=== PATIENT | female | born 1970 | race Caucasian/White ===

== ENCOUNTER 2018-05-11 13:39 | Emergency (ER) | payer BC ==
[~2018-05-11] VITALS: Ht 165.1 cm; Wt 58.6 kg
[~2018-05-11 13:39] MED LIST: BENADRYL25 MG PO; GAS-X80 MG PO; IBUPROFEN600 MG PO; KLONOPIN0.5 MG; KLONOPIN0.5 MG PO; PERCOCET 5-3251 TAB PO
[2018-05-11 14:02] VITALS: Ht 165.1 cm; Wt 58.6 kg
[2018-05-11] MEDS ORDERED: CYCLOBENZAPRINE10 MG PO (14:06)
[2018-05-11 14:49] LABS: APPEARANCE CLEAR (CLEAR); BACTERIA MODERATE /hpf (NONE SEEN); BILIRUBIN NEGATIVE (NEGATIVE); COLOR YELLOW (YELLOW); EPITHELIAL CELLS 0-5 /hpf (0-5); GLUCOSE NEGATIVE (NEGATIVE); KETONE LARGE mg/dL (NEGATIVE); MUCUS >1+ /lpf (NONE SEEN); NITRITE NEGATIVE (NEGATIVE); PROTEIN NEGATIVE (NEGATIVE); RED CELLS - URINE RARE /hpf (0-5); UROBILINOGEN NORMAL (NORMAL); WHITE CELLS - URINE 0-5 /hpf (0-5)
[2018-05-11 15:00] LABS: BASOPHILS 0.2 % (0-2); EOSINOPHILS 0.3 % (0-7); HEMATOCRIT 36.6 % (36.0-48.0); HEMOGLOBIN 12.4 g/dL (12-16); IMMATURE GRANULOCYTES 0.2 % (0-5); LYMPHOCYTES 11.2 % (15-50); MCH 29.2 pg (26.0-34.0); MCHC 33.9 g/dL (31.0-37.0); MCV 86.3 fL (80.0-100.0); MEAN PLATELET VOLUME 8.9 fL (7.4-10.4); MONOCYTES 3.2 % (2-11); NEUTROPHILS 84.9 % (40-80); PLATELET COUNT 221 10x3/uL (130-400); RBC 4.24 10x6/uL (4.00-5.40); RDW 11.8 % (11.5-14.5); WBC 6.5 10x3/uL (4.8-10.8)
[2018-05-11 15:59] LABS: ALBUMIN 3.2 g/dL (3.4-5.0); ALKALINE PHOSPHATASE 105 U/L (46-116); ALT (SGPT) 25 U/L (10-68); BILIRUBIN - TOTAL 1.01 mg/dL (0.2-1.3); CALC OSMOLALITY 284 mosm/kg (275-300); CALCIUM 8.1 mg/dL (8.5-10.1); CARBON DIOXIDE 28.3 mmol/L (21.0-32.0); CHLORIDE - SERUM 107 mmol/L (98-107); CREATININE - SERUM 0.7 mg/dL (0.6-1.3); GLUCOSE 110 mg/dL (74-106); POTASSIUM - SERUM 3.4 mmol/L (3.5-5.1); PROTEIN - SERUM 6.6 g/dL (6.4-8.2); SODIUM 143 mmol/L (136-145); UREA NITROGEN 11 mg/dL (7-18); eGFR NON AFRICAN AMERICAN > 90 mL/min (90-120)
[2018-05-11 16:25] LABS: AMYLASE - SERUM 46 U/L (25-115); LIPASE 78 U/L (73-393)
[2018-05-11] MEDS ORDERED: ZOFRAN ODT4 MG/UDTAB PO (17:51)
[2018-05-11 18:29] VITALS: BP 121/79
== END 2018-05-11 18:29 | disposition home or self-care (01) ==
LOC: D.ER 13:39
PROVIDERS: Family Medicine
DX: R11.2 Nausea with vomiting, unspecified (principal); T50.905A Adverse effect of unspecified drugs, medicaments and biological substances, initial encounter; Y92.019 Unspecified place in single-family (private) house as the place of occurrence of the external cause; R51 Headache; Z85.828 Personal history of other malignant neoplasm of skin

== ENCOUNTER → 2018-06-27 21:01 | Outpatient (CLI) | payer BC ==
[2018-05-11 14:02] VITALS: BMI 21.5
[~2018-06-27 21:01] MED LIST changes: +CYCLOBENZAPRINE10 MG PO; +ZOFRAN ODT4 MG/UDTAB PO
== END | disposition home or self-care (01) ==
LOC: D.LABREF 21:01
DX: R31.9 Hematuria, unspecified (principal)

== ENCOUNTER → 2018-10-02 16:16 | Outpatient (CLI) | payer BC ==
[2018-05-11 14:02] VITALS: BMI 21.5
== END | disposition home or self-care (01) ==
LOC: D.LABREF 16:16
DX: D72.829 Elevated white blood cell count, unspecified (principal)